=== PATIENT | female | born 1985 | race Caucasian/White ===

== ENCOUNTER 2018-02-12 10:43 | Emergency (ER) | payer OTHER ==
[~2018-02-12] VITALS: Ht 162.6 cm; Wt 88.5 kg
== END 2018-02-12 15:15 | disposition home or self-care (01) ==
LOC: ER 10:43
DX: O26.891 Other specified pregnancy related conditions, first trimester (principal); R10.2 Pelvic and perineal pain; Z34.01 Encounter for supervision of normal first pregnancy, first trimester

== ENCOUNTER 2018-06-16 20:06 | Inpatient (IN) | payer OTHER ==
[~2018-06-16] VITALS: Ht 162.6 cm; Wt 98.0 kg
[2018-06-16] MEDS ORDERED: ALDOMET500 MG PO (22:43)
[2018-06-16] MEDS ORDERED: ZYRTEC10 MG PO (22:44)
[2018-06-16] MEDS ORDERED: PRENATAL FORMU1 EAC1 PO (22:44)
== END 2018-06-18 16:55 | DRG 833 ==
LOC: LDR 20:06
PROC: 4A1HXCZ Monitoring of Products of Conception, Cardiac Rate, External Approach (ICD-10-PCS; principal; 2018-06-16)
DX: O13.3 Gestational [pregnancy-induced] hypertension without significant proteinuria, third trimester (principal); Z34.02 Encounter for supervision of normal first pregnancy, second trimester

== ENCOUNTER → 2018-08-04 | Emergency (ER) | payer OTHER ==
[~2018-08-04] VITALS: Ht 162.6 cm; Wt 90.7 kg
[~2018-08-04] MED LIST: ALDOMET500 MG PO; CANDESARTAN-HC1 EAC2; LASIX20 MG; NIFEDIPINE ER30 M1; PRENATAL FORMU1 EAC1 PO; SERTRALINE HCL50 MG; ZYRTEC10 MG PO
== END | disposition home or self-care (01) ==
LOC: ER 21:54
DX: R55 Syncope and collapse (principal)